=== PATIENT | male | born 1970 | race Caucasian/White ===

== ENCOUNTER 2016-05-12 07:49 | Emergency (ER) | payer SELFPAY ==
--- NOTE | 2016-05-12 08:02 | UCPHY ---
H & P Time Seen by Provider: 05/12/16 07:55 Patient Type: New HPI/ROS: HPI Left-sided rib injury. 46-year-old male by private vehicle. Patient reports that he was sledding down a hill last Tuesday when he fell off the sled hit a tree, impacting his left lateral chest wall. He complains of left lateral mid rib pain which is worst with movement and deep breathing. He did not hit his head. No neck pain. There was no loss of consciousness. He denies any other complaints. ROS: Constitutional: No fever, no chills. No weakness. Respiratory: No cough. No shortness of breath at rest. As above. Cardiac: No chest pain, no palpitations. As above. Gastrointestinal: No abdominal pain, no vomiting. Genitourinary: No hematuria. Musculoskeletal: No back pain. No neck pain. No extremity pain. Skin: No lacerations or abrasions. Neurological: No headache. No focal weakness or altered sensation. Past medical history: No significant past medical history. No allergies to medications. Social history: Here by himself. Nonsmoker. Physical Exam: General Appearance: Alert, no distress. This patient is responding to questions appropriately and in full sentences. This patient appears well- hydrated and well-nourished. Head: Normocephalic atraumatic. Face: Facial bones are stable on palpation. Eyes: Pupils equal and round and reactive to light, no pallor or injection. No lid erythema or edema. ENT, Mouth: Mucous membranes moist. Dentition is intact. No malocclusion of the jaw. No tongue lacerations or abrasions. Pharynx is clear. The bilateral nasal canals are clear. No septal hematoma. Respiratory: There are no retractions, lungs are clear to auscultation with good air movement bilaterally. Chest wall is stable to AP and lateral palpation. He has focal tenderness on palpation over the mid axillary line on the left side, lateral aspect of ribs 9, 10. No crepitus or bony deformity noted on palpation of this area. No ecchymosis, edema, erythema, warmth or other significant soft tissue findings on gross inspection of this area. Cardiovascular: Regular rate and rhythm. No murmur. Gastrointestinal: Abdomen is soft and nontender, no masses, bowel sounds normal. Neurological: Motor sensory function is intact. Cranial nerves are normal. Cerebellar function intact. Skin: Warm and dry, no rashes. No lacerations, abrasions or contusions. Musculoskeletal: Neck is supple and nontender. The trachea is midline. No midline cervical, thoracic, lumbar or sacral tenderness on palpation. No flank tenderness on palpation. Extremities are symmetrical, full range of motion. All joints in the bilateral upper and bilateral lower extremities range without pain or impingement. No tenderness on palpation of the long bones in the bilateral upper and bilateral lower extremities. Psychiatric: No agitation. No depression. Database: EKG: Imaging: Left rib series x-ray with PA chest: No pneumothorax. Significant for a fracture to the 9th rib with moderate displacement. Interpreted by me. Procedures: Emergency department course: After my initial evaluation, the patient was sent for x-rays as above. He was given 600 mg of ibuprofen. 8:30 a.m., on re-evaluation of the patient results of his x-rays were discussed. Diagnosis of rib fracture discussed. Plan will be for pain medication and limited activity. He has no significant comorbidities. He will follow up with his primary care physician for re-evaluation in 2-3 days. He is in agreement with this management. Return to Urgent Care/emergency department precautions reviewed with him. All of his questions were answered. He was discharged in good condition. Differential Diagnosis: The differential diagnosis on this patient includes but is not limited to rib fracture, rib contusion, chest wall contusion. This represents a partial list of diagnoses considered. These considerations are based on history, physical exam, past history, reassessment and diagnostic testing. Constitutional: Initial Vital Signs Temperature (C) 36.3 C 05/12/16 08:02 Heart Rate 68 05/12/16 08:02 Respiratory Rate 18 05/12/16 08:02 Blood Pressure 159/108 H 05/12/16 08:02 O2 Sat (%) 95 05/12/16 08:02 O2 Delivery Mode Room Air Allergies/Adverse Reactions: No Known Allergies Allergy (Unverified 05/12/16 08:02) Home Medications: Medication Instructions Recorded NO HOME MEDS 02/14/10 Hydrocodone/APAP 5/325 [[place] 1 - 2 tab PO Q4-6PRN PRN #20 tab 05/12/16 5/325 (*)] Departure - Departure Disposition: Home, Routine, Self-Care Clinical Impression: Left rib fracture Condition: Good Instructions: Rib Fracture (ED) Additional Instructions: Read and follow provided instructions. Avoid any activity which exacerbates your pain. Follow-up with your primary care physician in 2-3 days for re-evaluation. Ibuprofen dosin mg every 6 hours with meals for the next 3 days only. [place]/Percocet dosin-2 every 4-6 hours for [address] Do not drive on this medication. Return to the emergency department for uncontrolled pain, shortness of breath, cough, fever or other serious concerns. Referrals: Abraham,John Valentin DO [Primary Care Provider] - As per Instructions Prescriptions: Hydrocodone/APAP 5/325 [[place] 5/325 (*)] 1 - 2 tab PO Q4-6PRN PRN #20 tab PRN Reason: Pain, Moderate - PQRS PQRS Measurement: Not applicable.
[2016-05-12 08:05] VITALS: BP 159/108; PULSE 68; RESP 18; TEMP 97.4; O2SAT 95
[2016-05-12] MEDS ORDERED: HYDROCOD/APAP 5/325 PREPACK#6 BTL TAKEHOME ONE (08:30)
[2016-05-12] MEDS ORDERED: IBUPROFEN 800 MG TAB PO ONE (08:30)
[2016-05-12] MEDS ORDERED: IBUPROFEN 600 MG TAB PO ONE (08:42)
== END 2016-05-12 08:46 | disposition home or self-care (01) ==
LOC: CED 07:49
DX: S22.42XA Multiple fractures of ribs, left side, initial encounter for closed fracture (principal); Y93.23 Activity, snow (alpine) (downhill) skiing, snowboarding, sledding, tobogganing and snow tubing; V00.222A Sledder colliding with stationary object, initial encounter; Y99.8 Other external cause status
CPT/HCPCS: 71101-PO; G0463-PO